=== PATIENT | female | born 1965 | race Caucasian/White ===

== ENCOUNTER 2020-03-10 13:50 | Outpatient (CLI) | payer OTHER, SELFPAY ==
--- NOTE | 2020-03-10 13:55 | MM_ITS ---
WS: [id number] BILATERAL DIGITAL SCREENING MAMMOGRAPHY WITH CAD CLINICAL INFORMATION: SCREENING HISTORY: Screening mammogram. No current complaints. COMPARISON: October 16, 2018 TECHNIQUE: Bilateral CC and MLO views. FINDINGS: The breasts are composed of heterogeneous fibroglandular density tissue, which can limit the detectio n of small underlying mass lesions. No suspicious mass, asymmetry, calcifications, or architectural d istortion. No evidence of malignancy. MM/[place] [id number] IMPRESSION: BI-RADS: 1-Negative FOLLOW UP: 1 Year Follow-up Recommend return to annual screening mammography.
== END 2020-03-10 13:51 | disposition home or self-care (01) ==
LOC: RADSHAW 13:53
PROVIDERS: PCP Nurse Practitioner; Visit Provider Nurse Practitioner
DX: Z12.31 Encounter for screening mammogram for malignant neoplasm of breast (principal)
CPT/HCPCS: 77067

== ENCOUNTER 2021-05-04 10:02 | Outpatient (CLI) | payer OTHER, SELFPAY ==
--- NOTE | 2021-05-04 10:09 | MM_ITS ---
WS: [id number] SCREENING DIGITAL MAMMOGRAM WITH CAD HISTORY: SCREENING COMPARISON: 03/10/2020, 10/16/2018 Bilateral CC and MLO views submitted. Computer aided detection analyzed. Breast composition: There are scattered areas of fibroglandular density. Increasing area of asymmetry in the upper outer quadrant of the RIGHT breast near 10:00 at a middle depth. Area of increasing den sity measures approximately 7 mm. Otherwise no change. MM/[place] [id number] IMPRESSION: BI-RADS: 0-Incomplete: Need additional imaging evaluation FOLLOW UP: Need Additional Imaging RIGHT breast: Spot compression views (CC and MLO). True ML. Ultrasound to follo w if abnormality persists.
== END 2021-05-04 10:03 | disposition home or self-care (01) ==
LOC: RADSHAW 10:07
PROVIDERS: PCP Nurse Practitioner; Visit Provider Nurse Practitioner
DX: Z12.31 Encounter for screening mammogram for malignant neoplasm of breast (principal)
CPT/HCPCS: 77067

== ENCOUNTER 2021-05-11 10:20 | Outpatient (CLI) | payer OTHER, SELFPAY ==
--- NOTE | 2021-05-11 10:24 | MM_ITS ---
WS: [id number] ADDITIONAL VIEWS RIGHT BREAST HISTORY: ABNORMAL MAMMOGRAM COMPARISON: 05/04/2021 and 03/10/2020 and 10/16/2018 Compression views right CC and MLO projection. True ML also submitted. Asymmetry in the upper outer quadrant of the RIGHT breast resolves with additional spot compression v iews. MM/[place] [id number] IMPRESSION: BI-RADS: 2-Benign FOLLOW-UP: 1 Year Follow-up
== END 2021-05-11 10:21 | disposition home or self-care (01) ==
LOC: RADSHAW 10:22
PROVIDERS: PCP Nurse Practitioner; Visit Provider Nurse Practitioner
DX: R92.8 Other abnormal and inconclusive findings on diagnostic imaging of breast (principal); N64.89 Other specified disorders of breast
CPT/HCPCS: 77065

== ENCOUNTER → 2021-07-13 07:59 | Outpatient (BNVA) | payer OTHER, SELFPAY | PROVIDERS: PCP Nurse Practitioner; Referring Provider Nurse Practitioner; Visit Provider Specialist | DX: G56.01 Carpal tunnel syndrome, right upper limb (principal); G56.21 Lesion of ulnar nerve, right upper limb | CPT/HCPCS: 95908 ==

== ENCOUNTER → 2021-11-02 08:36 | Outpatient (BNVA) | payer OTHER, SELFPAY | PROVIDERS: PCP Nurse Practitioner; Referring Provider Nurse Practitioner; Visit Provider Specialist | DX: G56.01 Carpal tunnel syndrome, right upper limb (principal) | CPT/HCPCS: 95860; 99202 ==

== ENCOUNTER → 2021-12-21 14:46 | Outpatient (BNVA) | payer OTHER, SELFPAY | PROVIDERS: PCP Nurse Practitioner; Referring Provider Nurse Practitioner Family; Visit Provider Specialist | DX: G56.01 Carpal tunnel syndrome, right upper limb (principal); M21.931 Unspecified acquired deformity of right forearm | CPT/HCPCS: 73110 ==

== ENCOUNTER 2022-05-10 08:43 | Outpatient (CLI) | payer OTHER, SELFPAY ==
--- NOTE | 2022-05-10 08:49 | MM_ITS ---
WS: [id number] VIEWS: MLO and CC views both breasts. 3D digital tomosynthesis is also included in this exam. Comparison made with prior exam of 08/09/2017, 10/16/2018, 05/04/2021.. Findings: There was no sign of mass, architectural distortion or suspicious calcification in either breast. sca ttered fibroglandular densities MM/[place] [id number] Impression: BI-RADS: 2-Benign FOLLOW-UP: 1 Year Follow-up This mammogram was also analyzed by the Computer Aided Detection System R2 Imag e Public Speaking Teacher.
== END 2022-05-10 08:44 | disposition home or self-care (01) ==
LOC: RAD 08:44
PROVIDERS: PCP Nurse Practitioner; Visit Provider Nurse Practitioner
DX: Z12.31 Encounter for screening mammogram for malignant neoplasm of breast (principal)
CPT/HCPCS: 77063; 77067

== ENCOUNTER → 2022-07-12 12:59 | Outpatient (BNVA) | payer OTHER, SELFPAY | PROVIDERS: PCP Nurse Practitioner; Visit Provider Nurse Practitioner Family | DX: G56.01 Carpal tunnel syndrome, right upper limb (principal) | CPT/HCPCS: 99213 ==

== ENCOUNTER 2022-08-03 09:23 | Day surgery (SDC) | payer OTHER, SELFPAY ==
[2022-08-03 09:40] VITALS: BP 101/74; PULSE 57; RESP 18; TEMP 36.5; O2SAT 100
[2022-08-03] MEDS: acetaminophen 1,000 MG/100 ML PIGGYBACK 400 MG IV (10:00)
[2022-08-03] MEDS: sodium chloride 0.9% 1,000 ML 30 ML IV (10:08)
[2022-08-03] MEDS: CELEcoxib 200 mg Capsule 400 MG PO (10:10)
--- NOTE | 2022-08-03 10:21 | W.PM.OPSUD ---
Surgery/Procedure H&P Update DATE OF PROCEDURE: August 03, 2022 DATE H&P PERFORMED: 07/12/22 H&P UPDATE INFORMATION: I have reviewed H&P completed within last 30 days, I have examined patient prior to procedure, No changes to prior documentation and H&P is in [facility] EMR on date indicated PREOP DIAGNOSIS: Right carpal tunnel syndrome PLANNED PROCEDURE: Operation Date: 08/03/22 10:50 Proposed Procedures p Right CARPAL TUNNEL RELEASE [id number],G56.00(Right) - Octavia Genao MD Related Problem List Diagnoses (1) Right carpal tunnel syndrome:
--- NOTE | 2022-08-03 10:24 | W.PM.OPSUD ---
Surgery/Procedure H&P Update DATE OF PROCEDURE: August 03, 2022 DATE H&P PERFORMED: 07/12/22 PREOP DIAGNOSIS: Right carpal tunnel syndrome PLANNED PROCEDURE: Operation Date: 08/03/22 10:50 Proposed Procedures p Right CARPAL TUNNEL RELEASE [id number],G56.00(Right) - Octavia Genao MD
--- NOTE | 2022-08-03 10:40 | P.ANESASSM_ITS ---
Pre-Anesthetic Assessment Height/Weight: Height 1.65 m Weight 72.575 kg Temp Pulse Resp BP Pulse Ox O2 Del Method 97.7 F 57 L 18 101/74 100 08/03/22 09:40 08/03/22 09:40 08/03/22 09:40 08/03/22 09:40 08/03/22 09:40 08/03/22 09:55 Preop Diagnosis: Right carpal tunnel syndrome Operation Date: 08/03/22 10:50 Proposed Procedures p Right CARPAL TUNNEL RELEASE [id number],G56.00(Right) - Octavia Genao MD Familial anesthetic complications: None Was Beta Edison taken within 24 hours: N/A Was Clonidine taken within 24 hours: N/A Last intake: Intake Last Liquid Date 08/02/22 Last Liquid Time 19:00 Last Solid Date 08/02/22 Last Solid Time 19:00 Social No alcohol and No tobacco Exam alert, oriented x 3, clear to auscultation bilaterally and regular rate & rhythm Airway Submandibular: within normal limits Cervical ROM: within normal limits Mallampati: Class II Dentition: full History/ROS No significant history except as noted Anesthetic Plan ASA status: 1 Anesthesia: Choice (Discussed MAC /blk of median and ulnar vs GA/LMA) Medications/Allergies Home Medications Medication Instructions Recorded Confirmed Last Taken Type Vitamin D3 08/02/22 08/02/22 History multivitamin 08/02/22 08/02/22 History [place]'s wort 300 mg PO 08/03/22 08/02/22 History soy isoflavone-black cohosh 155 cap PO DAILY 08/03/22 08/03/22 08/02/22 History root-magnolia bark 155 mg capsule (Estroven) Allergies Allergy/AdvReac Type Severity Reaction Status Date / Time No Known Allergies Allergy Verified 08/03/22 09:48 Current Medications Generic Name Dose Route Start Last Admin Trade Name Freq PRN Reason Stop Dose Admin Sodium Chloride 1,000 mls @ 30 mls/hr 08/03/22 09:30 08/03/22 10:08 Sodium Chloride 0.9% IV 08/04/22 09:29 30 mls/hr .Q24H GENEVA Administration PFSH Anesthesia Social History Smoking and tobacco status: never smoked Alcohol intake: never History of recent travel: No Data Anesthesia Cardiac Studies: No Data to Display
[2022-08-03] MEDS: ceFAZolin 2,000 MG in sodium chloride 0.9% (plus) 50 ML 100 MG IV (11:08)
[2022-08-03 12:04] VITALS: BP 93/57; PULSE 54; RESP 16; TEMP 36.3; O2SAT 96
[2022-08-03 12:10] VITALS: BP 96/60; PULSE 53; RESP 16; TEMP 36.3; O2SAT 98
[2022-08-03 12:21] VITALS: BP 92/60; PULSE 53; RESP 18; TEMP 36.6; O2SAT 100
--- NOTE | 2022-08-03 12:28 | P.OP_ITS ---
Operative Report Date of procedure: August 03, 2022 Pre-op diagnosis: Right carpal tunnel syndrome Post-op diagnosis: Right carpal tunnel syndrome Post-op findings: Significant compression across the carpal canal Procedure done: Right carpal tunnel release Pathology: none sent Surgeon: Octavia Genao Financial Reporting Director: None Anesthesia: MAC (With median and ulnar nerve blocks in the mid forearm, ASA 1) Estimated blood loss (mL): 2 Tourniquet time (min): 24 (At 250 mmHg) IV fluids (mL): 300 Urine output (mL): 0 (No Cisneros) Complications: None Findings: Significant compression across the carpal canal Brief History: This 57-year-old woman presented with complaints of right hand and finger numbness. Her symptoms were consistent with right carpal tunnel syndrome. Electrodiagnostic studies were consistent with right carpal tunnel syndrome as well. After discussion in the office, the patient felt her symptoms were significant enough that she wished to proceed with right carpal tunnel release. She was initially seen and evaluated in November of this year, however, secondary to personal issues, she was unable to proceed with surgery at that time. She is now able to proceed comfortably with carpal tunnel release. Risks and complications were discussed with her in the office. Consents were signed and questions were answered. Procedure: The patient was brought to the operating theater. The patient had median and ulnar nerve blocks at the mid forearm with MAC, ASA 1. The patient was also given Ancef 2 g preoperatively. The arm was then prepped and draped with DuraPrep in usual fashion with the arm draped free. The tourniquet was elevated to 250 mmHg for a total tourniquet time of 24 minutes. A surgical pause was performed. At the time, the surgical pause, we confirmed the site and side of surgery. We also confirmed the patient's identity, appropriate and timely administration of preoperative antibiotics and preoperative surgical markings. An incision was then made along the thenar crease. The incision crossed the wrist joint in a curvilinear fashion. Dissection continued through skin and soft tissues using a scalpel. The palmaris longus was identified along with the transverse carpal ligament. Each of these was released carefully to avoid injury to the median nerve. We were able to dissect gently into the carpal canal which was noted to be quite tight with significant compression across the median nerve. The nerve was visualized and was an hourglass shape. The canal was subsequently palpated to assure there was no bony encroachment upon the canal. There was a quite thickened fibrous tissue within the canal, and this was opened longitudinally as well. The canal was then palpated distally and proximally to assure that my small finger was passed easily without impingement. Finding this to be so, attention was directed to closure. The wound was irrigated with ropivacaine plain. It was then closed with 3-0 nylon in an interrupted mattress fashion. Sterile dressing was then placed consisting of Dermabond, OpSite, fluffed fluffs, sterile soft roll, and an Marco wrap. The tourniquet was released after 24 minutes. There were no complications. There were no specimens. The procedure was well tolerated. Plan is the patient will be discharged home. Related Problem List Diagnoses (1) Right carpal tunnel syndrome:
[2022-08-03 12:43] VITALS: BP 116/80; PULSE 50; RESP 18; O2SAT 100
--- NOTE | 2022-08-03 13:53 | ANES.PROC ---
Anesthesia Procedures Procedure/Date: 08/03/22 Nerve Block ^: Nerve Block 1: Main Anesthesia: other (MAC) Time Out Performed: Yes Consent: requested by attending/covering physician, from patient, risks and benefits reviewed and patient agrees to proceed Nerve block location: ulnar and median Anesthesia monitors applied: pulse oximetry, EKG, BP cuff and oxygen Anesthetic Used: lidocaine 2% (5 ml to each nerve) Amount of anesthesia used (mL): 10 Nerve Stimulator Used?: No Interscalene/Femoral BLK: 2 stimuplex 22 g needle used for position and inplane approach, visualize local anesthetic spread and no vascular puncture identified Injection: neg aspiration of heme Patient Tolerated Procedure: well and no complications Complications: none
--- NOTE | 2022-08-03 15:22 | ANE.PACU2 ---
Inpatient post-anesthesia follow up: Airway intact: Yes Vital signs: Temperature 97.8 F Pulse Rate 50 Respiratory Rate 18 Blood Pressure 116/80 Pulse Oximetry 100 Oxygen Delivery Me thod Room Air Oxygen Flow Rate Fraction of Inspir ed Oxygen Hydration adequate: Yes Nausea and vomiting: No Pain level: 1 Mental status: Baseline
== END 2022-08-03 12:55 | disposition home or self-care (01) ==
PROVIDERS: PCP Nurse Practitioner; Visit Provider Specialist
PROC: (CPT 64721; principal; 2022-08-03 10:40)
DX: G56.01 Carpal tunnel syndrome, right upper limb (principal)
CPT/HCPCS: 64721; J0131; J0690; J2250; J2704; J2795; J3010; J3490; J7030

== ENCOUNTER → 2023-04-25 08:29 | Outpatient (BNVA) | payer OTHER, SELFPAY | PROVIDERS: PCP Nurse Practitioner; Referring Provider Nurse Practitioner; Visit Provider Nurse Practitioner Family | DX: M65.311 Trigger thumb, right thumb | CPT/HCPCS: 73130; 99214 ==

== ENCOUNTER → 2023-05-09 11:03 | Outpatient (BNVA) | payer OTHER, SELFPAY | PROVIDERS: PCP Nurse Practitioner; Visit Provider Specialist | DX: M65.311 Trigger thumb, right thumb (principal) | CPT/HCPCS: 99214 ==

== ENCOUNTER 2023-05-27 05:44 | Day surgery (SDC) | payer OTHER, SELFPAY ==
[2023-05-26 09:01] VITALS: BMI 28.3
[2023-05-27] VITALS (10 sets, daily range): BP systolic 111–124; BP diastolic 67–76; PULSE 54–65; RESP 9–21; TEMP 36.1–36.6; O2SAT 99–100
[2023-05-27] MEDS: sodium chloride 0.9% 1,000 ML 30 ML IV (06:10)
[2023-05-27] MEDS: acetaminophen 1,000 MG/100 ML PIGGYBACK 400 MG IV (06:13)
[2023-05-27] MEDS: CELEcoxib 200 mg Capsule 400 MG PO (06:14)
[2023-05-27] MEDS: gabapentin 300 mg Capsule PO (06:14)
--- NOTE | 2023-05-27 06:41 | ANES.PREANE2 ---
Pre-Anesthetic Assessment Height/Weight: Height 1.65 m Weight 77.111 kg Temp Pulse Resp BP Pulse Ox O2 Del Method 96.9 F L 56 L 18 111/75 99 Room Air 05/27/23 05:58 05/27/23 05:58 05/27/23 05:58 05/27/23 05:58 05/27/23 05:58 05/27/23 06:02 Operation Date: 05/27/23 07:00 Proposed Procedures p RIGHT THUMB TRIGGER FINGER RELEASE [id number], M65.30(Right) - Octavia Genao MD Familial anesthetic complications: None Was Beta Edison taken within 24 hours: N/A Was Clonidine taken within 24 hours: N/A Last intake: Intake Last Liquid Date 05/26/23 Last Liquid Time 20:00 Last Solid Date 05/26/23 Last Solid Time 19:00 Social No alcohol and No tobacco Exam alert, oriented x 3, clear to auscultation bilaterally and regular rate & rhythm Airway Mallampati: Class I Dentition: full Anesthetic Plan ASA status: 1 Anesthesia: General Risk of > 500 ml blood loss (7ml/kg in children): No Medications/Allergies Home Medications Medication Instructions Recorded Confirmed Last Taken Type Vitamin D3 1 cap PO DAILY 08/02/22 05/26/23 05/26/23 History multivitamin 1 cap PO DAILY 08/02/22 05/26/23 05/26/23 History soy isoflavone-black cohosh 0.5 cap PO DAILY 08/03/22 05/26/23 05/26/23 History root-magnolia bark 155 mg capsule (Estroven) Allergies Allergy/AdvReac Type Severity Reaction Status Date / Time No Known Allergies Allergy Verified 05/26/23 08:58 Current Medications Generic Name Dose Route Start Last Admin Trade Name Freq PRN Reason Stop Dose Admin Sodium Chloride 1,000 mls @ 30 mls/hr 05/27/23 06:00 05/27/23 06:10 Sodium Chloride 0.9% IV 05/28/23 05:59 30 mls/hr .Q24H GENEVA Administration PFSH Anesthesia Social History Smoking and tobacco status: never smoked Alcohol intake: never Substance/Drug Use: never Data Anesthesia Cardiac Studies: No Data to Display
--- NOTE | 2023-05-27 06:48 | W.PM.OPSUD ---
Surgery/Procedure H&P Update DATE OF PROCEDURE: May 27, 2023 DATE H&P PERFORMED: 05/09/23 H&P UPDATE INFORMATION: I have reviewed H&P completed within last 30 days, I have examined patient prior to procedure, No changes to prior documentation and H&P is in [facility] [place] on date indicated PLANNED PROCEDURE: Operation Date: 05/27/23 07:00 Proposed Procedures p RIGHT THUMB TRIGGER FINGER RELEASE [id number], M65.30(Right) - Octavia Genao MD Related Problem List Diagnoses (1) Trigger finger of right thumb:
[2023-05-27] MEDS: ceFAZolin 2,000 MG in sodium chloride 0.9% (plus) 50 ML 100 MG IV (07:39)
[2023-05-27] MEDS: BUPivacaine 0.5% INJ 30 mL XX (08:10)
--- NOTE | 2023-05-27 08:34 | P.OP_ITS ---
Operative Report Date of procedure: May 27, 2023 Pre-op diagnosis: Right trigger thumb Post-op diagnosis: Right trigger thumb Procedure done: Right trigger thumb release Specimens removed/disposition: None Surgeon: Octavia Genao MD Telephone Maintenance Mechanic: None Anesthesia: General (Per LMA, ASA 1) Estimated blood loss (mL): 2 Tourniquet time (min): 16 (At 250 mmHg) IV fluids (mL): 800 Urine output (mL): 0 (No Cisneros) Complications: None Findings: Very thick A1 jackie with fibrous type tissue. Condition: stable Disposition: PACU (Then discharged to same-day surgery in preparation for discharge to home) Brief History: This 58-year-old woman presented to my office with complaints of triggering of her right thumb. Previously, she has undergone right carpal tunnel release. This was not present at the time of that surgery. She was seen in the office, questions were answered, consents were signed, and surgery was scheduled. Procedure: Patient was brought to the operating theater. [facility]. She was administered a general anesthetic per LMA which was well-tolerated. 2 g of Ancef were given preoperatively as prophylaxis. A tourniquet was placed high on the arm, and this was elevated after exsanguination to 250 mmHg. Tourniquet time was 16 minutes. Surgical pause was performed prior to commencement of the surgical procedure. At the time of the surgical pause we identified the site and side of surgery. We also identified the patient's identity and appropriate administration of IV antibiotics. Following the surgical pause, an incision was made proximally along the metacarpal phalangeal crease of the thumb. Dissection continued through the skin to the subcutaneous tissues using a scalpel. Blunt dissection was then utilized to spread soft tissues and allow access to the A1 jackie. Each A1 jackie was identified. It was then incised longitudinally and sharply using a knife. This was accomplished without difficulty and atraumatically. Once the A1 jackie was released, tendons were brought up out of the wound and evaluated. There were no gross masses or abnormal findings on the tendons. Tendons were returned to normal position. We then irrigated the wound and subsequently closed it with 3-0 nylon with an interrupted mattress type suture. Following closure of the wound, the wound was injected with local anesthetic into the subcutaneous tissues. Sterile dressing was then placed consisting of Dermabond, OpSite, fluffed fluffs sterile soft roll, and an Marco wrap. The patient was returned to recovery in satisfactory condition. She will be discharged home to follow-up with me in the office. There were no complications and no specimens. Related Problem List Diagnoses (1) Trigger finger of right thumb:
[2023-05-27] MEDS: HYDROcodone-acetaminophen 5-325 mg Tablet 1 TAB PO (09:38)
--- NOTE | 2023-05-27 09:40 | ANE.PACU2 ---
Inpatient post-anesthesia follow up: Airway intact: Yes Vital signs: Temperature 96.9 F Pulse Rate 58 Respiratory Rate 18 Blood Pressure 115/73 Pulse Oximetry 100 Oxygen Delivery Me thod Room Air Oxygen Flow Rate Fraction of Inspir ed Oxygen Hydration adequate: Yes Nausea and vomiting: No Pain level: 1 Mental status: Baseline
== END 2023-05-27 09:49 | disposition home or self-care (01) ==
PROVIDERS: PCP Nurse Practitioner; Visit Provider Specialist
PROC: (CPT 26055; principal; 2023-05-27 07:00)
DX: M65.311 Trigger thumb, right thumb (principal)
CPT/HCPCS: 26055; J0131; J0690; J1100; J2405; J2704; J3010; J3490; J7030

== ENCOUNTER 2023-06-06 08:25 | Outpatient (CLI) | payer OTHER, SELFPAY ==
--- NOTE | 2023-06-06 08:35 | MM_ITS ---
WS: [id number] BILATERAL SCREENING DIGITAL TOMOSYNTHESIS MAMMOGRAM WITH CAD HISTORY: SCREENING COMPARISON: 05/10/2022, 05/04/2021 Bilateral CC and MLO views with tomosynthesis and synthetic mammography submitted. Computer aided det ection analyzed. Breast composition: There are scattered areas of fibroglandular density. No suspicious masses, microc alcifications or architectural distortion. IMPRESSION: MM/[place] [id number] BI-RADS: 1-Negative FOLLOW UP: 1 Year Follow-up
== END 2023-06-06 08:26 | disposition home or self-care (01) ==
PROVIDERS: PCP Nurse Practitioner; Visit Provider Nurse Practitioner
DX: Z12.31 Encounter for screening mammogram for malignant neoplasm of breast (principal)
CPT/HCPCS: 77063; 77067

== ENCOUNTER → 2023-06-20 08:03 | Outpatient (BNVA) | payer OTHER, SELFPAY | PROVIDERS: PCP Nurse Practitioner; Visit Provider Specialist | DX: M65.311 Trigger thumb, right thumb (principal) | CPT/HCPCS: 99024 ==

== ENCOUNTER → 2024-04-16 08:10 | Outpatient (BNVA) | payer OTHER, SELFPAY | PROVIDERS: PCP Nurse Practitioner; Referring Provider Nurse Practitioner; Visit Provider Specialist | DX: M06.4 Inflammatory polyarthropathy (principal) | CPT/HCPCS: 36415; 73130; 80053; 84550; 85025; 85651; 86140; 86200; 86225; 86235; 86431; 99214 ==

== ENCOUNTER 2024-04-23 09:50 | Outpatient (RCR) | payer OTHER, SELFPAY | END 2024-04-25 23:59 | disposition home or self-care (01) | LOC: SOT 09:50 | PROVIDERS: PCP Nurse Practitioner; Visit Provider Specialist | DX: M20.032 Swan-neck deformity of left finger(s) (principal) | CPT/HCPCS: L3927 ==

== ENCOUNTER 2024-06-25 08:00 | Outpatient (CLI) | payer OTHER, SELFPAY ==
--- NOTE | 2024-06-25 08:03 | MM_ITS ---
WS: [id number] VIEWS: MLO and CC views both breasts. 3D digital tomosynthesis is also included in this exam. Comparison made with prior exam of 04/17/2010, 06/21/2011, 05/19/2012, 07/31/2013, 08/01/2014, 07/07/2015, 07/23/2016, 08/09/2017, 10/16/2018, 03/10/2020, 05/04/2021, 05/10/2022, 06/06/2023. Findings: There are scattered areas of fibroglandular density. Stable appearing scattered fibroglandular densities noted in both breasts. MM/MM scr BI tomosynthesis [id number] Impression: BI-RADS: 2 - Benign. FOLLOW-UP: 1 Year Follow-up This mammogram was also analyzed by the Computer Aided Detection System R2 Imag e Hematology Nurse Educator.
== END 2024-06-25 08:01 | disposition home or self-care (01) ==
PROVIDERS: PCP Nurse Practitioner; Visit Provider Nurse Practitioner
DX: Z12.31 Encounter for screening mammogram for malignant neoplasm of breast (principal); R92.323 Mammographic fibroglandular density, bilateral breasts
CPT/HCPCS: 77063; 77067

== ENCOUNTER → 2025-02-25 09:59 | Outpatient (BNVA) | payer OTHER, SELFPAY | PROVIDERS: PCP Nurse Practitioner; Visit Provider Student in an Organized Health Care Education/Training Program | DX: K46.9 Unspecified abdominal hernia without obstruction or gangrene (principal) | CPT/HCPCS: 99204 ==

== ENCOUNTER 2025-03-11 10:37 | Outpatient (CLI) | payer OTHER, SELFPAY ==
[2025-03-11] MEDS: iohexol 350 mg/mL 500 mL Btl (per mL) IV (10:54)
--- NOTE | 2025-03-11 11:00 | CT_ITS ---
WS: [id number] CT ABDOMEN PELVIS TECHNIQUE: Contrast-enhanced CT of the abdomen and pelvis with coronal and sagittal reformatted images. CLINICAL INFORMATION: Hernia COMPARISON: None. DLP: 392.[address] scans at [facility] use at least one of these dose optimization techniques: automated exposure control; mA and/or kV adjustment per patient size (includes targeted exams where dose is matched to clinical indication); or iterative reconstruction. FINDINGS: Fat-containing RIGHT femoral hernia in the RIGHT lower quadrant. No herniated bowel. Recommend correlation with patient's symptoms. Lung bases are well aerated. Tiny noncalcified nodule RIGHT lower lobe.Fatty liver. Hepatomegaly. Small RIGHT hepatic cyst. Normal spleen. Small esophageal hiatal hernia. Normal portal vein and splenic vein. Adrenal glands are normal. Normal renal parenchymal enhancement. No hydronephrosis. Normal caliber abdominal aorta. Lobulated uterine fundus likely due to fibroids. Fat-containing RIGHT adnexal lesion compatible with dermoid measuring 3.1 x 2.5 cm. This can be further evaluated with ultrasound. Tiny fat-containing umbilical hernia CT/CT abdomen pelvis w con* [id number] IMPRESSION: 1. Fat-containing RIGHT femoral hernia in the RIGHT lower quadrant. No herniat ed bowel. Recommend correlation with patient's symptoms. 2. Lobulated uterine fundus likely due to fibroids 3. Fat-containing RIGHT adnexal lesion compatible with dermoid measuring 3.1 x 2.5 cm. This can be further evaluated with ultrasound. Dermoids can be prone t o ovarian torsion and recommend UNDERLAY STITCHER consultation for resection
== END 2025-03-11 10:38 | disposition home or self-care (01) ==
PROVIDERS: PCP Nurse Practitioner; Visit Provider Student in an Organized Health Care Education/Training Program
DX: K41.90 Unilateral femoral hernia, without obstruction or gangrene, not specified as recurrent (principal); N94.9 Unspecified condition associated with female genital organs and menstrual cycle
CPT/HCPCS: 74177

== ENCOUNTER → 2025-04-08 10:00 | Outpatient (BNVA) | payer OTHER, SELFPAY | PROVIDERS: PCP Nurse Practitioner; Visit Provider Student in an Organized Health Care Education/Training Program | DX: Z09 Encounter for follow-up examination after completed treatment for conditions other than malignant neoplasm (principal); K41.90 Unilateral femoral hernia, without obstruction or gangrene, not specified as recurrent | CPT/HCPCS: 99213 ==

== ENCOUNTER 2025-07-08 10:16 | Outpatient (CLI) | payer OTHER, SELFPAY ==
--- NOTE | 2025-07-08 | MM_ITS ---
WS: [id number] BILATERAL SCREENING DIGITAL TOMOSYNTHESIS MAMMOGRAM WITH CAD HISTORY: ANNUAL SCREENING COMPARISON: 06/25/2024, 06/06/2023, 05/04/2021, 05/10/2022 Bilateral CC and MLO views with tomosynthesis and synthetic mammography submitted. Computer aided detection analyzed. Breast composition: There are scattered areas of fibroglandular density. No suspicious masses, microcalcifications or architectural distortion. Asymmetry in the lateral RIGHT breast on the CC projection has been stable since 2020. There are a few benign scattered calcifications within each breast. MM/MM [facility] tomosynthesis [id number] IMPRESSION: BI-RADS: 2 - Benign. FOLLOW UP: 1 Year Follow-up
== END 2025-07-08 10:17 | disposition home or self-care (01) ==
LOC: RAD 10:17
PROVIDERS: PCP Nurse Practitioner; Visit Provider Nurse Practitioner
DX: R92.323 Mammographic fibroglandular density, bilateral breasts (principal); Z12.31 Encounter for screening mammogram for malignant neoplasm of breast
CPT/HCPCS: 77063; 77067